=== PATIENT | male | born 1985 | race African-American/Black ===

== ENCOUNTER 2020-01-10 21:00 | Emergency (ER) | payer OTHER ==
[~2020-01-10] VITALS: Ht 172.7 cm; Wt 80.3 kg
[2020-01-10 21:05] VITALS: TEMP 99.1
[2020-01-10 22:26] LABS: PLATELET COUNT 259 K/uL (142-355)
[2020-01-11 00:57] VITALS: BP 111/67
== END 2020-01-11 01:00 | disposition home or self-care (01) ==
LOC: ED 21:00
PROVIDERS: Family Medicine
DX: K59.09 Other constipation (principal); K57.90 Diverticulosis of intestine, part unspecified, without perforation or abscess without bleeding
CPT/HCPCS: 36415; 80053; 81000; 82150; 83690; 85027; 99283